=== PATIENT | male | born 1935 | race Hispanic/Latino ===

== ENCOUNTER 2017-01-19 08:58 | Day surgery (SDC) | payer MEDICARE, BC ==
[2017-01-11 14:16] VITALS: BMI 21.2
[2017-01-19] MEDS ORDERED: Etomidate 20 mg/10ml Inj IV ONE ×2 (10:34→11:06)
[2017-01-19] MEDS ORDERED: Lidocaine 2% Inj (20ml) ONE (10:34)
[2017-01-19] MEDS ORDERED: Propofol 10 mg/ml Inj (20 ML) ONE ×2 (10:35→11:12)
[2017-01-19] MEDS ORDERED: Atropine 0.4 mg/ml Inj (1 mL) ONE ×2 (10:45→11:09)
[2017-01-19] MEDS ORDERED: ePHEDrine 50 mg/ml Inj ONE ×2 (11:09→11:29)
[2017-01-19] MEDS ORDERED: Sodium Chloride 0.9% 1,000 ML IV SCH (11:45)
[2017-01-19 15:20] VITALS: BP 146/78; PULSE 52; RESP 18; TEMP 97.4; O2SAT 100
== END 2017-01-19 13:46 | disposition home or self-care (01) ==
LOC: ENDO 08:58
PROVIDERS: ATTEND Internal Medicine Gastroenterology
DX: K29.50 Unspecified chronic gastritis without bleeding (principal); D12.0 Benign neoplasm of cecum; K21.9 Gastro-esophageal reflux disease without esophagitis; K22.8 Other specified diseases of esophagus; K44.9 Diaphragmatic hernia without obstruction or gangrene; K57.30 Diverticulosis of large intestine without perforation or abscess without bleeding; K64.8 Other hemorrhoids; R19.4 Change in bowel habit
CPT/HCPCS: 43239; 45380; 88305; 88312; 88342; J0461; J2704; J7040 ×2